=== PATIENT | female | born 1975 | race American Indian/Alaskan Native ===

== ENCOUNTER 2017-03-10 11:11 | Emergency (ER) | payer MEDICAID, OTHER ==
[2017-03-10 11:22] VITALS: BP 130/76; PULSE 72; RESP 18; TEMP 97.8; O2SAT 100; BMI 33.9
--- NOTE | 2017-03-10 11:44 | C.PDOC ---
History Of Present Illness 41 yo female come in for evaluation of left knee pain gradually developed for past few hours after sustained blunt trauma at work. Pt reports, salesperson [employer] , " want to re-adjust my seat, when its moved suddenly forward and I hit Left knee over front panel". Pt describes pain as localized over front of knee, aching, worse with weight bearing. Otherwise, pt denies obvious deformity, swelling, weakness, sensory or vascular deficits to Left leg, denies skin changes. Ambulate to ED for evaluation, not in any apparent distress. Time Seen by Provider: 03/10/17 11:32 Chief Complaint (Nursing): Lower Extremity Problem/Injury History Per: Patient Past Medical History Reviewed: Historical Data, Nursing Documentation, Vital Signs Vital Signs: Last Vital Signs Temp 97.8 F 03/10/17 11:20 Pulse 72 03/10/17 11:20 Resp 18 03/10/17 11:20 BP 130/76 03/10/17 11:20 Pulse Ox 100 03/10/17 11:44 - Medical History PMH: No Chronic Diseases Family History: States: No Known Family Hx - Social History Hx Alcohol Use: Yes Hx Substance Use: No - Immunization History Hx Tetanus Toxoid Vaccination: No Hx Influenza Vaccination: No Hx Pneumococcal Vaccination: No Review Of Systems Except As Marked, All Systems Reviewed And Found Negative. Constitutional: Negative for: Fever, Chills Musculoskeletal: Positive for: Other (lEFT KNEE PAIN) Skin: Negative for: Bruising Neurological: Negative for: Weakness, Numbness Physical Exam - Physical Exam Appears: Well, Non-toxic, No Acute Distress Skin: Normal Color, Warm, No Rash, No Ecchymosis Head: Normacephalic Extremity: Normal ROM (Left knee with mild discomfort to bend), Tenderness ( over Left patella), No Calf Tenderness, Capillary Refill (lesst katz 2sec to left foot), No Deformity, No Swelling (left knee) Neurological/Psych: Oriented x3, Normal Speech, Normal Motor, Normal Sensation, Normal Reflexes ED Course And Treatment O2 Sat by Pulse Oximetry: 100 Pulse Ox Interpretation: Normal - Other Rad Left knee X-Ray: Interpreted by Me, Viewed By Me Interpretation: (-) acute fx or dislocation Progress Note: On re-eavluation, pt is afebrile, hemodynamicaly stable. Non- toxic. Ambulatory in ED with stable gait. Left knee: exam c/w contusion to patella, no deformity, no edema, no ecchymoses. FAROM, no neurovascular deficits. Imaging review and appears normal. Javier wrap applied to Left knee. Pt advised and ref. to F/u with Ortho in2 -3 days for re-eavl. return if any new changes. Disposition Counseled Patient/Family Regarding: Studies Performed, Diagnosis, Need For Followup, Rx Given - Disposition Referrals: Parul Lima MD [Staff Provider] - Disposition: HOME/ ROUTINE Disposition Time: 11:58 Condition: STABLE Additional Instructions: RICE-REST, ICE, COMPRESSION, ELEVATION TAKE IBUPROFEN DAILY FOR 2-3 DAYS FOLLOW UP WITH ORTHOPEDIST IN 2-3 DAYS FOR RE-EVALUATION. RETURN TO ED IF ANY WORSENING OR NEW CHANGES. Prescriptions: Ibuprofen [Motrin Tab] 600 mg PO Q6 #20 tab Instructions: Knee Sprain (ED) Forms: [facility] (Romanian), Work Excuse - Clinical Impression Clinical Impression: Knee contusion
--- NOTE | 2017-03-10 12:21 | RAD ---
PROCEDURE: Left Knee Radiographs. HISTORY: COMPARISON: None available. FINDINGS: BONES: No acute displaced fracture. JOINTS: No dislocation. JOINT EFFUSION: No significant joint effusion. OTHER FINDINGS: None. IMPRESSION: No acute displaced fracture, dislocation, or significant joint effusion identified. If symptoms persist, or if there is continued clinical concern, x-ray follow-up in 7-10 days should be considered.
== END 2017-03-10 12:12 | disposition home or self-care (01) ==
LOC: C.ER 11:11
DX: S80.02XA Contusion of left knee, initial encounter (principal); W22.8XXA Striking against or struck by other objects, initial encounter; Y99.0 Civilian activity done for income or pay